=== PATIENT | male | born 1945 | race Caucasian/White ===

== ENCOUNTER 2017-05-07 04:46 | Inpatient (IN) | payer MEDICARE ==
[2017-05-07] VITALS (16 sets, daily range): BP systolic 124–184; BP diastolic 62–117
[~2017-05-07] VITALS: Ht 179.7 cm; Wt 156.2 kg
[~2017-05-07 04:46] MED LIST: AC500T PO; ALBU0.8322 IH; ALBU17AE3 IH; ALLP300T PO; AMLO5TAB2 PO; ASP81CT PO; ASP81TEC PO; ASPI-875 PO; BACL20TA PO; CARV6.252 PO; CLPD75T PO; DICL75TA2 PO; ENAL20TA PO; FLUT12AE4 IH; FURO40TA4 PO; GEMF600T3 PO; GLIM2TAB PO; INSASP10V IM; INSU100C4 SQ; INSU100I14 SQ; ISOS30TA3 PO; METF-380 PO; METO-272 PO; METO50TA7 PO; MOME13HF2 IH; MULT-963 PO; NTR.4SL SL; POTA20TA15 PO; POTA20TA7 PO; POTA99TA18 PO; RANI75TA30 PO; SIMV20TA3 PO; TICA90TA PO; UBID100C17 PO; [UNRECOGNIZED DRUG - CODE] IT; [UNRECOGNIZED DRUG - OTHER] PO; colon clenz PO
[2017-05-07] MEDS ORDERED: KETOROLAC 30 MG/ML VIAL IVP STA (04:59)
--- NOTE | 2017-05-07 05:08 | ED Fall/Injury ---
General Chief Complaint: Trauma-Non Activation Stated Complaint: BS FALL Nursing Triage Note: PT STATES FALL TONIGHT, SAYS HAS FALLEN X2 MORE TIME. EMS STATES PT FSBS LOW Source: patient, EMS Exam Limitations: no limitations (LIAT DAVIDSON) History of Present Illness Time seen by provider: 05:03 Initial Comments Patient presents to ER by EMS with a chief complaint of a fall approximately 1: 30 this morning. He was getting up to the bathroom and then fell called EMS EMS of the nail arrived to help him up from the bathroom. Patient states is not his head but rather landed on his left side. He's been having a lot of falls last couple days and yesterday fell on his left knee. He has not had this looked at either. He says it the past for 5 days been having some diarrhea and poor appetite but still taking his NovoLog 70/30 100 units twice a day. He's had no fevers chills cough shortness of breath or chest pain. He does have a history of coronary disease and the stent placed least 2 years ago. He is not on Plavix or blood thinners. He is however on aspirin. He's been on 2 different antibiotics one of which she thinks is ampicillin the last couple weeks for his left third toe and foot that he is being treated by wound care. (LIAT DAVIDSON) Allergies and Home Medications Allergies Coded Allergies: Gatifloxacin (Unverified Allergy, 07/02/12) Home Medications Acetaminophen 500 Mg Tablet, 1,500 MG PO HS, (Reported) TAKES 3 (500MG) TABLETS EVERY NIGHT AT BEDTIME Albuterol Sulfate 2.5 Mg/3 Ml Solution, 2.5 MG IH TID PRN, (Reported) NEEDED FOR SEVERE SHORTNESS OF BREATH Allopurinol 300 Mg Tablet, 300 MG PO BID, (Reported) Amlodipine Besylate 5 Mg Tablet, 5 MG PO HS, (Reported) Aspirin 81 Mg Chew, 81 MG PO DAILY, (Reported) Baclofen 20 Mg Tablet, 20 MG PO QID PRN, (Reported) NEEDED FOR PAIN Carvedilol 6.25 Mg Tablet, 6.25 MG PO BID, (Reported) Clopidogrel Bisulfate 75 Mg Tab, 75 MG PO HS, (Reported) Diclofenac Sodium 75 Mg Tablet.dr, 75 MG PO UD PRN, (Reported) take only as needed Enalapril Maleate 20 Mg Tablet, 20 MG PO DAILY, (Reported) Furosemide 40 Mg Tablet, 40 MG PO BID, (Reported) Glimepiride 2 Mg Tablet, 2 MG PO BID, (Reported) Insulin Aspart 100 Unit/1 Ml Insuln.pen, 30 UNIT SQ BID, (Reported) Insulin Glargine,Hum.rec.anlog 300 Units/3 Ml Soln, 40 UNITS SQ BID, (Reported) Isosorbide Mononitrate 60 Mg Tab, 60 MG PO BID, (Reported) Metformin Hcl 1,000 Mg Tablet, 1,000 MG PO BID WITH MEALS, (Reported) hold until 05/18/13 Metoprolol Succinate 50 Mg Tab.sr.24h, 50 MG PO HS, (Reported) Mometasone/Formoterol 13 Gm Hfa.aer.ad, 2 PUFF IH BID PRN, (Reported) NEEDED FOR SHORTNESS OF BREATH Multivitamin 1 Each Tablet, 1 TAB PO DAILY, (Reported) Nitroglycerin 0.4 Mg Tab, 0 SL PRN, (Reported) 1 TAB EVERY 5 MINUTES X 3 DOSES NEEDED FOR CHEST PAIN Potassium Chloride 20 Meq Tab.prt.sr, 20 MEQ PO DAILY, (Reported) Ranitidine Hcl 75 Mg Tablet, 150 MG PO HS, (Reported) Simvastatin 20 Mg Tablet, 20 MG PO DAILY, (Reported) [colon clenz] , 1 CAP PO HS, (Reported) Constitutional: No chills, No diaphoresis, dizziness, No fever, No malaise Eyes: Denies Blindness, Denies Blurred Vision, Denies Drainage, Denies Pain, Denies Photophobia Ears, Nose, Mouth, Throat: denies ear pain, denies ear discharge Respiratory: No cough, No short of breath, No wheezing Cardiovascular: No chest pain, Hx of Intervention, No palpitations, syncope, vascular heart diseas Gastrointestinal: No abdominal pain, No constipation, diarrhea, No nausea, No vomiting Genitourinary: No discharge, No dysuria, No frequency Musculoskeletal: see HPI, back pain, joint pain, No joint swelling Skin: No pruritus, No rash Psychiatric/Neurological: Denies Headache, Denies Numbness, Denies Paresthesia (LIAT DAVIDSON) Past Kzxeuts-Wbeieo-Ufamwu Hx Patient Social History Alcohol Use: Denies Use Recreational Drug Use: No Recent Foreign Travel: No Contact w/Someone Who Travel: No Recent Infectious Disease Expo: No (LIAT DAVIDSON) Immunizations Up To Date Date of Pneumonia Vaccine: May 14, 2011 (LIAT DAVIDSON) Physical Exam Vital Signs Vital Sign - Last 12Hours 05/07/17 07:55 O2 Flow Rate 4.00 (KEMAR COY MD) Vital Signs Capillary Refill : Less Than 3 Seconds (LIAT DAVIDSON) General Appearance: mild distress, obese HEENT: PERRL/EOMI, normal ENT inspection, TMs normal, pharynx normal Neck: non-tender, full range of motion, supple, normal inspection Cardiovascular: normal peripheral pulses, regular rate, rhythm, no murmur, other (compression dressings on bilateral legs) Respiratory: chest non-tender, lungs clear, normal breath sounds, no respiratory distress Gastrointestinal: normal bowel sounds, non tender, soft, no organomegaly Extremities: normal capillary refill, pedal edema, other (ankle and calf wraps) Neurologic/Psychiatric: alert, normal mood/affect, oriented x 3 Skin: normal color, warm/dry Lymphatic: no adenopathy (LIAT DAVIDSON) Tiffany Coma Score Best Eye Response: (4) Open Spontaneously Best Verbal Response: (5) Oriented Best Motor Response: (6) Obeys Commands Tiffany Total: 15 (LIAT DAVIDSON) Progress/Results/Core Measures Results/Orders Lab Results Laboratory Tests Test 05/07/17 05:00 05/07/17 05:15 05/07/17 05:30 05/07/17 06:28 Range/Units White Blood Count 11.0 4.3-11.0 10^3/uL Red Blood Count 4.43 4.35-5.85 10^6/uL Hemoglobin 13.8 13.3-17.7 G/DL Hematocrit 42 40-54 % Mean Corpuscular Volume 96 80-99 FL Mean Corpuscular Hemoglobin 31 25-34 PG Mean Corpuscular Hemoglobin Concent 33 32-36 G/DL Red Cell Distribution Width 15.3 H 10.0-14.5 % Platelet Count 210 130-400 10^3/uL Mean Platelet Volume 10.5 H 7.4-10.4 FL Neutrophils (%) (Auto) 73 42-75 % Lymphocytes (%) (Auto) 18 12-44 % Monocytes (%) (Auto) 8 0-12 % Eosinophils (%) (Auto) 2 0-10 % Basophils (%) (Auto) 1 0-10 % Neutrophils # (Auto) 8.0 H 1.8-7.8 X 10^3 Lymphocytes # (Auto) 2.0 1.0-4.0 X 10^3 Monocytes # (Auto) 0.8 0.0-1.0 X 10^3 Eosinophils # (Auto) 0.2 0.0-0.3 10^3/uL Basophils # (Auto) 0.1 0.0-0.1 10^3/uL Sodium Level 137 135-145 MMOL/L Potassium Level 4.9 3.6-5.0 MMOL/L Chloride Level 106 98-107 MMOL/L Carbon Dioxide Level 20 L 21-32 MMOL/L Anion Gap 11 5-14 MMOL/L Blood Urea Nitrogen 70 H 7-18 MG/DL Creatinine 2.83 H 0.60-1.30 MG/DL Estimat Glomerular Filtration Rate 22 BUN/Creatinine Ratio 25 Glucose Level 125 H 70-105 MG/DL Calcium Level 9.7 8.5-10.1 MG/DL Magnesium Level 2.2 1.8-2.4 MG/DL Total Bilirubin 0.5 0.1-1.0 MG/DL Aspartate Amino Transf (AST/SGOT) 23 5-34 U/L Alanine Aminotransferase (ALT/SGPT) 20 0-55 U/L Alkaline Phosphatase 86 40-136 U/L B-Type Natriuretic Peptide 10.2 <100.0 PG/ML Total Protein 7.6 6.4-8.2 GM/DL Albumin 3.9 3.2-4.5 GM/DL Serum Alcohol < 10 <10 MG/DL Urine Color YELLOW Urine Clarity CLEAR Urine pH 5 5-9 Urine Specific [place] 1.010 L 1.016-1.022 Urine Protein 2+ H NEGATIVE Urine Glucose (UA) NEGATIVE NEGATIVE Urine Ketones NEGATIVE NEGATIVE Urine Nitrite NEGATIVE NEGATIVE Urine Bilirubin NEGATIVE NEGATIVE Urine Urobilinogen NORMAL NORMAL MG/DL Urine Leukocyte Esterase NEGATIVE NEGATIVE Urine RBC (Auto) NEGATIVE NEGATIVE Urine RBC NONE /HPF Urine WBC NONE /HPF Urine Squamous Epithelial Cells 0-2 /HPF Urine Crystals NONE /LPF Urine Bacteria TRACE /HPF Urine Casts PRESENT /LPF Urine Hyaline Casts 10-25 H /LPF Urine Mucus NEGATIVE /LPF Urine Culture Indicated NO C-Reactive Protein High Sensitivity 2.18 H 0.00-0.50 MG/DL Glucometer 112 H 70-110 MG/DL Test 05/07/17 08:54 05/07/17 09:12 Range/Units Glucometer 101 70-110 MG/DL Blood Gas Puncture Site RT RADIAL Blood Gas Patient Temperature 96.6 Arterial Blood pH 7.20 *L 7.37-7.43 Arterial Blood Partial Pressure CO2 50 H 35-45 MMHG Arterial Blood Partial Pressure O2 59 L 79-93 MMHG Arterial Blood HCO3 19 L 23-27 MMOL/L Arterial Blood Total CO2 20.8 L 21.0-31.0 MMOL/L Arterial Blood Oxygen Saturation 88 L 94-100 % Arterial Blood Base Excess -7.8 L -2.5-2.5 MMOL/L [place] Test YES-POS Blood Gas Ventilator Setting NO Blood Gas Inspired Oxygen 2 (KEMAR COY MD) My Orders Orders - KEMAR COY MD Hs C Reactive Protein (05/07/17 06:34) Bipap Rt-Rfs (05/07/17 06:36) Ct Chest/Abdomen/Pelvis Wo (05/07/17 06:53) Ct Lumbar Spine Wo (05/07/17 06:53) Ns Iv 1000 Ml (Sodium Chloride 0.9%) (05/07/17 07:52) Cho 75g/M 0snack (21-2400 Jose) (05/07/17 Lunch) Naloxone Injection (Narcan Injection) (05/07/17 09:15) Arterial Blood Gas (05/07/17 09:13) Albuterol/Ipra Inhalation Soln (Duoneb I (05/07/17 10:00) Svn Sm Volume Nebulizer Rt-Rfs (05/07/17 09:53) (KEMAR COY MD) Medications Given in ED Current Medications Medications Dose Ordered Sig/Monika Route Start Time Stop Time Status Last Admin Dose Admin Albuterol/ Ipratropium 3 ml ONCE ONCE INH 05/07/17 10:00 05/07/17 10:01 DC 05/07/17 10:11 3 ML Naloxone HCl 0.4 mg ONCE ONCE IV 05/07/17 09:15 05/07/17 09:16 DC 05/07/17 09:16 0.4 MG Sodium Chloride 1,000 ml @ 0 mls/hr Q0M ONCE IV 05/07/17 05:59 05/07/17 06:00 DC 05/07/17 06:05 999 MLS/HR Sodium Chloride 1,000 ml @ 0 mls/hr Q0M ONCE IV 05/07/17 07:52 05/07/17 07:56 DC 05/07/17 08:04 1,000 MLS/HR (KEMAR COY MD) Vital Signs/I&O Vital Sign - Last 12Hours 05/07/17 05/07/17 05/07/17 05/07/17 04:49 04:49 05:10 07:55 Temp 98.9 98.9 98.9 Pulse 62 62 74 Resp 20 20 18 B/P (MAP) 119/79 119/79 (92) 137/94 Pulse Ox 92 92 96 O2 Delivery Room Air Room Air Nasal Cannula O2 Flow Rate 4.00 05/07/17 10:11 Pulse Ox 99 O2 Delivery OxyMask O2 Flow Rate 5.00 (KEMAR COY MD) Blood Pressure Mean: 92 Progress Note #1: Time: 06:38 Progress Note Care of this patient was assumed from Dr. Davidson at shift change. X-rays reviewed by me. There appeared to be age determinate compression fractures in the lumbar spine. CT of the head was viewed by me and [facility] report reviewed. There were no acute injuries identified. The remainder of the x-rays appear unremarkable in regard to trauma. Chest x-ray is obscured by body habitus. I have concerns about this patient's respiratory status. He has obvious obstructive sleep apnea. He is difficult to arouse, has on her breathing, and oxygen saturations dropped into the 80s when he falls into deep sleep even on 4 L by nasal cannula. I was eventually able to wake the patient to a conversational state. He reports he was told many years ago he needed CPAP but he does not want to use it. When informed he could in his sleep without CPAP he states "that would be all right". When asked about suicidal ideation, he denies any suicidal thinking. However, he states "there's no use in it" in regard to me asking if he wants to continue living. RT is now with patient to obtain an ABG. BiPAP will also be started. Although patient is now alert and conversational, he does fall asleep in mid sentence often. Repeat fingerstick blood sugar was 112. Patient was reexamined and found to have ecchymosis over the left posterior mid back. He complains of pain in this area. He denies pain in any other location. CT of the chest, abdomen and pelvis without contrast will be ordered to clarify his pulmonary status as the chest x-ray was obscured by body habitus. I believe patient should be admitted as he has had multiple falls in recent days. He has obvious severe sleep apnea. He is in acute renal failure. He also takes the maximum dose of baclofen which is problematic in the context of his sleep apnea. Progress Note #2: Time: 07:08 Progress Note Patient is much more alert at this time. Respiratory therapy has obtained an ABG and results are pending. Patient is refusing CPAP/BiPAP. He makes it very clear that he would rather or suffer consequences of end organ damage from hypoxemia then wear CPAP. He reports that he is 72 years old and prepared to if his sleep apnea is uncontrolled. He is very resolute on this matter and absolutely refuses respiratory support other than oxygen. He also states he wishes to be a DO NOT RESUSCITATE status. He expresses a desire for his to take him home and is not interested in admission. I will obtain a baseline creatinine to determine if he is truly an acute versus chronic renal failure which will impact decision to admit or dismiss. CT of the chest, abdomen and pelvis and L-spine are pending. Progress Note #3: Time: 08:04 Progress Note ABG was clotted. However, since patient refuses positive pressure respiratory support, I will not redraw the ABG. Patient remains more alert after CT scan. His labs from [facility] were reviewed. Baseline creatinine is 1.6-1.9. His second liter of IV fluids has been ordered. Progress Note #4: Time: 08:[address] scans were reviewed. There is no acute trauma. Plan was to allow patient to eat and do a trial of ambulation to determine disposition. However, patient is now unresponsive and will not wake up even with sternal rub. Fingerstick blood sugar was 101. Pupils are constricted. No narcotics on his med list but a trial of Narcan seems reasonable. An ABG will also be obtained now that there has been a change in mental status. Progress Note #5: Time: 10:01 Progress Note is now here with patient. She states patient's comments about rather dying than using CPAP are consistent with what he has said in the past. Patient states he will consider trying CPAP if admitted and that will expedite discharge home. Patient wanted to leave AMA but cannot care for him at home. Because of this he grudgingly accepts admission. states he seems a little confused. Oxygen saturations have been dropping to the low 80s on 4 L by nasal cannula when he is asleep. He has been very difficult to arouse. Narcan 0.4 mg was administered during his last episode and seemed to have no effect on his level of alertness. Patient is alert at this time. We will attempt to have him eat so as to avoid further hypoglycemia. Last fingerstick blood sugar was 101. Case has been reviewed with Dr. Gallagher who accepts admission. hotel services supervisor consult will be sought to evaluate for placement versus hospice. Dr. Hunter excepts consult for trauma evaluation. (KEMAR COY MD) Diagnostic Imaging Diagonstic Imaging: Xray Plain Films/CT/US/NM/MRI: chest (ribs) Comments No acute cardiopulmonary process noted. Poorly penetrated due to body habitus. Rib views reviewed without any acute osseous abnormalities noted. Reviewed: Reviewed by Me Plain Films/CT/US/NM/MRI: knee (left) Comments No acute osseous abnormalities. Degenerative changes of the knee noted. Reviewed: Reviewed by Me Diagonstic Imaging: Xray Plain Films/CT/US/NM/MRI: other (lumbar spine) Comments Wedging of L5. Chronic Degenerative Changes Noted. Loss of Normal Lumbar Curvature. No prior lumbar studies to compare to. Reviewed: Reviewed by Me Diagonstic Imaging: CT Plain Films/CT/US/NM/MRI: head Comments No intracranial bleed, mass, midline shift, mass effect, tumor. No acute intracranial abnormalities. No acute intracranial hemorrhage, transcortical infarctions or mass. No acute fractures. Paranasal sinus inflammatory disease with left maxillary sinus. Remainder of the paranasal sinuses are clear. The mastoid air cells are clear. There is incidentally bilateral proptosis. No intraorbital mass or fluid collection. Status post remote bilateral cataract surgery. Reviewed: Reviewed [place] Study, Reviewed by Me Diagonstic Imaging: Xray Plain Films/CT/US/NM/MRI: hip (left) Comments Degenerative changes noted but no acute osseous fracture. Reviewed: Reviewed by Me (LIAT DAVIDSON) Diagonstic Imaging: CT Plain Films/CT/US/NM/MRI: chest, abdomen, pelvis Comments CT chest, abdomen and pelvis viewed by me and report reviewed. See report below : NAME: [facility]LL[facility] REC#: [id number] PT STATUS: REG ER : 1945 PHYSICIAN: KEMAR COY MD ADMIT DATE: 05/07/17/ER Draft Date of Exam:05/07/17 CT CHEST/ABDOMEN/PELVIS WO Clinical indication: Patient with multiple recent falls. Patient complains of pain in hip, knees, ribs and low back. Exam: CT scan of the chest, abdomen, and pelvis performed without IV contrast. Coronal reformatted images were created. Comparison: CT scan of the lumbar spine without contrast dated 05/07/2017. Findings: Chest: There are cystic changes with parenchymal bands, bronchiectasis and scarring involving the anterior aspects of both lung apices and anterior aspects of both upper lobes. There is mild dependent atelectasis involving both lung bases. There is a nonspecific patchy area of consolidation in the medial right lung base which measures 1.8 cm seen on series 2, image 40. The remainder of the lungs show increased lung markings bilaterally which may be related to atelectasis or scarring. There is no pleural effusion or pneumothorax. There is no mediastinal hematoma. Visualized portion of the thyroid gland is unremarkable. There is no significant mediastinal, bilateral hilar, or axillary lymphadenopathy. The extrathoracic soft tissues are unremarkable. There is atherosclerotic disease of the coronary arteries. The thoracic spine, ribs, and shoulder regions show no acute fracture. There are degenerative spurs seen throughout the thoracic spine. Incompletely imaged surgical screws or pins within the proximal right humeral head. Abdomen and pelvis: There is no evidence of intra-abdominal free fluid or free air. The liver, spleen, pancreas, gallbladder and both adrenal glands are unremarkable. Both kidneys are unremarkable. Vascular calcifications are seen on the left. There is no hydronephrosis or gross renal mass seen. There is surgical anastomosis involving the sigmoid colon region. There is a small colonic diverticula involving the sigmoid colon with no CT evidence of diverticulitis. The appendix is unremarkable. Otherwise, the large bowel, small bowel, and stomach are unremarkable. There is no intra-abdominal lymphadenopathy or extra abdominal lymphadenopathy. The bladder is partially fluid distended with no gross abnormalities visualized. The prostate gland is grossly unremarkable. The extra abdominal and extrapelvic soft tissue structures show no acute process. Impression: 1: There is no CT evidence of acute chest, abdomen, or pelvic process. There is no bone fracture. 2: There is a 1.8 cm area of consolidation in the right lung base. Followup chest CT scan in 3 months is suggested to evaluate for resolution. 3: The remainder of the chest, abdomen and pelvis shows no significant abnormality. Dictated on workstation # [id number] Dict: 05/07/17 0806 Trans: 05/07/17 0845 [facility] [id number] Interpreted by: ANALI HUERTA MD Diagonstic Imaging: CT Plain Films/CT/US/NM/MRI: other (lumbar spine) Comments CT lumbar spine viewed by me and report reviewed. See report below: NAME: [facility]LL[facility] REC#: [id number] PT STATUS: REG ER : 1945 PHYSICIAN: KEMAR COY MD ADMIT DATE: 05/07/17/ER Draft Date of Exam:05/07/17 CT LUMBAR SPINE WO Clinical indication: Patient with multiple recent falls. Patient complains of pain in the hip, knee, rib and low back. Exam: Axial CT scan of the lumbar spine performed without IV contrast. Sagittal and coronal reformatted images were created. Comparison: X-ray of the lumbar spine dated 05/07/2017. Findings: Patient body habitus obscures fine detail of the bony structures of the lumbar spine. There is straightening of the upper lumbar spine posture. There is no acute lumbar spine fracture or dislocation. There is severely hypertrophic vertebral body spurs involving the thoracolumbar spine and multilevel facet arthropathy. There is severe loss of intervertebral disc height seen at the L1-L2, L2-L3, L3-L4, and moderate loss at the L4-L5 and L5-S1 levels. There is severe bilateral bony neural foramen narrowing at the L1-S1 levels due to facet arthropathy and disc spurs. There are suggestions of diffuse disc bulges seen from the T12-L5 levels with associated central posterior disc osteophyte complexes. There is severe central canal narrowing seen at the T12-L1, L2-L3, L3-L4, L4-5 levels and mild to moderate central canal narrowing at the L1-L2 level. There is suspected at least mild central canal narrowing at the L5-S1 level. There is no significant paraspinal soft tissue abnormality. There is mild dependent atelectasis involving the posterior lung bases. IMPRESSION: There is severe multilevel thoracolumbar spine degenerative disc disease with no acute lumbar spine fracture or dislocation. Dictated on workstation # [id number] Dict: 05/07/17 0800 Trans: 05/07/17 0836 [facility] [id number] Interpreted by: ANALI HUERTA MD (KEMAR COY MD) Transfer of Care Transfer of Care Time: 06:11 Care transferred to: Dr. Arcos (LIAT DAVIDSON) Departure Impression Impression: Primary Impression: Acute kidney injury (nontraumatic) Additional Impressions: Fall Qualified Codes: W19.XXXA - Unspecified fall, initial encounter Back pain Qualified Codes: M54.5 - Low back pain Left knee pain Qualified Codes: M25.562 - Pain in left knee Hypoglycemia Diarrhea Qualified Codes: A09 - Infectious gastroenteritis and colitis, unspecified Obstructive sleep apnea Hypoxia Disposition: ADMITTED INPATIENT Condition: Improved Admissions Decision to Admit Reason: Admit from ER (General) Decision to Admit/Date: May 07, 2017 Time/Decision to Admit Time: 06:30 (KEMAR COY MD) Departure-Patient Inst. Referrals: VINICIUS BERUMEN (PCP/Family) Primary Care Physician Copy Copies To 1: SAMANTHA CAMARGO MD, TITUS J May 07, 2017 05:08 KEMAR COY MD May 07, 2017 06:53
[2017-05-07 05:10] LABS: BASOPHILS # (AUTO) 0.1 10^3/uL (0.0-0.1); BASOPHILS % (AUTO) 1 % (0-10); EOSINOPHILS # (AUTO) 0.2 10^3/uL (0.0-0.3); EOSINOPHILS % (AUTO) 2 % (0-10); LYMPHOCYTES % (AUTO) 18 % (12-44); MEAN CORPUSCULAR HEMOGLOBIN 31 PG (25-34); MEAN CORPUSCULAR HGB CONC 33 G/DL (32-36); MEAN CORPUSCULAR VOLUME 96 FL (80-99); MEAN PLATELET VOLUME 10.5 FL (7.4-10.4); MONOCYTES # (AUTO) 0.8 X 10^3 (0.0-1.0); MONOCYTES % (AUTO) 8 % (0-12); NEUTROPHILS % (AUTO) 73 % (42-75); PLATELET COUNT 210 10^3/uL (130-400); RED BLOOD COUNT 4.43 10^6/uL (4.35-5.85); RED CELL DISTRIBUTION WIDTH 15.3 % (10.0-14.5)
[2017-05-07 05:22] LABS: BILIRUBIN,URINE NEGATIVE (NEGATIVE); KETONES,URINE NEGATIVE (NEGATIVE); LEUKOCYTE ESTERASE ,URINE NEGATIVE (NEGATIVE); NITRITE,URINE NEGATIVE (NEGATIVE); PH,URINE 5 (5-9); PROTEIN,URINE 2+ (NEGATIVE); UROBILINOGEN,URINE NORMAL (NORMAL)
[2017-05-07 05:31] LABS: SQUAMOUS EPITHELIAL CELL,UR 0-2 /HPF
[2017-05-07 05:37] LABS: ALANINE AMINOTRANSFERASE 20 U/L (0-55); ALBUMIN 3.9 GM/DL (3.2-4.5); ALCOHOL < 10 MG/DL (<10); ANION GAP 11 MMOL/L (5-14); ASPARTATE AMINO TRANSFERASE 23 U/L (5-34); BILIRUBIN,TOTAL 0.5 MG/DL (0.1-1.0); BLOOD UREA NITROGEN 70 MG/DL (7-18); BUN/CREATININE RATIO 25; CALCIUM 9.7 MG/DL (8.5-10.1); CARBON DIOXIDE 20 MMOL/L (21-32); CHLORIDE 106 MMOL/L (98-107); CREATININE SERUM 2.83 MG/DL (0.60-1.30); GFR ESTIMATED 22; GLUCOSE 125 MG/DL (70-105); MAGNESIUM 2.2 MG/DL (1.8-2.4); POTASSIUM 4.9 MMOL/L (3.6-5.0); SODIUM 137 MMOL/L (135-145); TOTAL PROTEIN 7.6 GM/DL (6.4-8.2)
[2017-05-07] MEDS ORDERED: ISM60TCR PO (05:44)
[2017-05-07] MEDS ORDERED: NS IV 1000 ML 1,000 ML IV ONE ×2 (05:59→07:52)
--- NOTE | 2017-05-07 06:42 | Diagnostic Imaging Report ---
Clinical indication: Patient with multiple recent falls. Patient complains of hip, knee, ribs and low back pain. Exam: X-ray of the left knee, 3 views. Comparison: None. Findings: There is no evidence of acute fracture or dislocation. There is no significant knee effusion. There is moderate to severe tricompartmental osteoarthritis of the left knee. There is moderate to severe medial compartment narrowing. There is a roughly 11 mm wide osteochondral defect involving the medial distal femoral condylar region. There is no loose bodies seen overlying the region of the joint. Impression: 1: There is no acute fracture or dislocation. 2: There is moderate to severe tricompartmental osteoarthritis of the left knee. 3: There is a small osteochondral defect involving the medial distal femoral condylar region. There is no loose body seen. Dictated by: Dictated on workstation # [id number]
--- NOTE | 2017-05-07 06:45 | Diagnostic Imaging Report ---
CLINICAL INDICATION: Patient with multiple recent falls. Patient complains of hip, knee, ribs, and low back pain. Exam: X-ray lumbar spine, 3 views. Comparison: None. FINDINGS: There is no evidence of acute fracture or dislocation. There is no cortical disruption seen. There is straightening of the thoracolumbar spine posterior region. There is severely hypertrophic vertebral body spurs seen throughout the lumbar spine. There is lower lumbar spine facet arthropathy/sclerosis. There is multilevel loss of intervertebral disc height which is severe at the L1-L2, L2-L3, L3-L4, moderate at the L4-5 and L5-S1 levels. Sacroiliac joints show no significant abnormality. There is mild left curvature of the the lumbar spine. IMPRESSION: 1.: There is levoscoliosis and severe multilevel lumbar spine degenerative disease with no acute fracture or dislocation. Dictated by: Dictated on workstation # [id number]
--- NOTE | 2017-05-07 06:54 | Diagnostic Imaging Report ---
Clinical indication: Evaluate head for acute process. Exam: Axial CT scan of the brain performed without IV contrast. Comparison: None. Findings: There is no evidence of acute cerebral infarct, intracranial hemorrhage, or gross mass effect. There is subtle focal areas of low-attenuation white matter changes in both cerebral hemispheres, likely representing chronic small vessel ischemic disease. There is normal marshall-white matter distinction. The brain parenchymal volume appears appropriate for patient's age. There is no significant midline shift or herniation. There is no evidence of hydrocephalus. The basal cisterns are unremarkable. The skull, extracranial soft tissue, and orbits are unremarkable. There is mild to moderate mucosal thickening involving the left maxillary sinus. There is mild mucosal thickening involving the ethmoid sinus and right maxillary sinus. There is mucosal thickening in the nasal cavity. Temporal bone structures show no significant abnormality. Impression: 1: Age-related brain parenchymal changes with no evidence of acute intracranial process. 2: Paranasal sinus disease. Dictated by: Dictated on workstation # [id number]
--- NOTE | 2017-05-07 08:02 | Diagnostic Imaging Report ---
Clinical indication: Patient with multiple recent falls. Patient complains of pain in hip, knee, ribs, and low back pain. Exam: X-ray of the left hip, AP and frog-leg views. Comparison: None. Findings: There is no acute fracture or dislocation. There is moderately hypertrophic spurs involving the left proximal femoral head/neck junction region. There is mild enthesopathy of the greater trochanter. Impression: Degenerative disease of the left hip with no acute fracture or dislocation seen. Dictated by: Dictated on workstation # [id number]
--- NOTE | 2017-05-07 08:14 | Diagnostic Imaging Report ---
CLINICAL INDICATION: Patient with multiple recent falls. Patient complains of pain in hip, knee, ribs, and low back. Exam: X-ray of the left ribs, 4 views. Comparison: Chest x-ray dated 05/07/2017. Findings: There is increased lung markings seen throughout both lungs which may be from chronic lung disease changes or lung infiltrates. These findings obscure evaluation of the left ribs. Left ribs show no acute fracture. There is severe multilevel thoracic and lumbar spine degenerative spurs. IMPRESSION: 1.: There is no evidence of rib fractures. 2: There is increased lung markings throughout both lungs which may represent lung infiltrates or chronic lung disease. Dictated by: Dictated on workstation # [id number]
--- NOTE | 2017-05-07 08:19 | Diagnostic Imaging Report ---
Clinical indication: Patient with recent falls. Patient complains of pain in hip, knee, ribs, and low back. Exam: Portable chest x-ray. Comparison: Chest x-ray dated 07/02/2012. Findings: There is interval development of increased lung markings with reticular nodular changes and patchy opacities throughout both lungs. Low lung volumes are seen. There is no pleural effusion or pneumothorax. Stable cardiomegaly. There is mild pulmonary vascular congestion. There are degenerative spurs seen throughout the thoracic spine. Impression: 1.: There is cardiomegaly and pulmonary vascular congestion which can be seen with congestive heart failure. 2: There is interval increased lung markings and reticulonodular changes throughout both lungs. These findings may be related to mild pulmonary congestion from congestive heart failure versus superimposed lung infiltrate or chronic lung disease changes. Dictated by: Dictated on workstation # [id number]
--- NOTE | 2017-05-07 08:37 | Diagnostic Imaging Report ---
Clinical indication: Patient with multiple recent falls. Patient complains of pain in the hip, knee, rib and low back. Exam: Axial CT scan of the lumbar spine performed without IV contrast. Sagittal and coronal reformatted images were created. Comparison: X-ray of the lumbar spine dated 05/07/2017. Findings: Patient body habitus obscures fine detail of the bony structures of the lumbar spine. There is straightening of the upper lumbar spine posture. There is no acute lumbar spine fracture or dislocation. There is severely hypertrophic vertebral body spurs involving the thoracolumbar spine and multilevel facet arthropathy. There is severe loss of intervertebral disc height seen at the L1-L2, L2-L3, L3-L4, and moderate loss at the L4-L5 and L5-S1 levels. There is severe bilateral bony neural foramen narrowing at the L1-S1 levels due to facet arthropathy and disc spurs. There are suggestions of diffuse disc bulges seen from the T12-L5 levels with associated central posterior disc osteophyte complexes. There is severe central canal narrowing seen at the T12-L1, L2-L3, L3-L4, L4-5 levels and mild to moderate central canal narrowing at the L1-L2 level. There is suspected at least mild central canal narrowing at the L5-S1 level. There is no significant paraspinal soft tissue abnormality. There is mild dependent atelectasis involving the posterior lung bases. IMPRESSION: There is severe multilevel thoracolumbar spine degenerative disc disease with no acute lumbar spine fracture or dislocation. Dictated by: Dictated on workstation # [id number]
--- NOTE | 2017-05-07 08:45 | Diagnostic Imaging Report ---
Clinical indication: Patient with multiple recent falls. Patient complains of pain in hip, knees, ribs and low back. Exam: CT scan of the chest, abdomen, and pelvis performed without IV contrast. Coronal reformatted images were created. Comparison: CT scan of the lumbar spine without contrast dated 05/07/2017. Findings: Chest: There are cystic changes with parenchymal bands, bronchiectasis and scarring involving the anterior aspects of both lung apices and anterior aspects of both upper lobes. There is mild dependent atelectasis involving both lung bases. There is a nonspecific patchy area of consolidation in the medial right lung base which measures 1.8 cm seen on series 2, image 40. The remainder of the lungs show increased lung markings bilaterally which may be related to atelectasis or scarring. There is no pleural effusion or pneumothorax. There is no mediastinal hematoma. Visualized portion of the thyroid gland is unremarkable. There is no significant mediastinal, bilateral hilar, or axillary lymphadenopathy. The extrathoracic soft tissues are unremarkable. There is atherosclerotic disease of the coronary arteries. The thoracic spine, ribs, and shoulder regions show no acute fracture. There are degenerative spurs seen throughout the thoracic spine. Incompletely imaged surgical screws or pins within the proximal right humeral head. Abdomen and pelvis: There is no evidence of intra-abdominal free fluid or free air. The liver, spleen, pancreas, gallbladder and both adrenal glands are unremarkable. Both kidneys are unremarkable. Vascular calcifications are seen on the left. There is no hydronephrosis or gross renal mass seen. There is surgical anastomosis involving the sigmoid colon region. There is a small colonic diverticula involving the sigmoid colon with no CT evidence of diverticulitis. The appendix is unremarkable. Otherwise, the large bowel, small bowel, and stomach are unremarkable. There is no intra-abdominal lymphadenopathy or extra abdominal lymphadenopathy. The bladder is partially fluid distended with no gross abnormalities visualized. The prostate gland is grossly unremarkable. The extra abdominal and extrapelvic soft tissue structures show no acute process. Impression: 1: There is no CT evidence of acute chest, abdomen, or pelvic process. There is no bone fracture. 2: There is a 1.8 cm area of consolidation in the right lung base. Followup chest CT scan in 3 months is suggested to evaluate for resolution. 3: The remainder of the chest, abdomen and pelvis shows no significant abnormality. Dictated by: Dictated on workstation # [id number]
[2017-05-07] MEDS ORDERED: NALOXONE 0.4 MG/ML 1 ML (NARCAN) VIAL IV ONE (09:15)
[2017-05-07 09:25] LABS: ABG BASE EXCESS -7.8 MMOL/L (-2.5-2.5); ABG HCO3 19 MMOL/L (23-27); ABG OXYGEN SATURATION 88 % (94-100); ABG PCO2 50 MMHG (35-45); ABG PO2 59 MMHG (79-93); ABG TCO2 20.8 MMOL/L (21.0-31.0)
[2017-05-07 09:27] LABS: ALLENS TEST YES-POS; PATIENT TEMP 96.6
[2017-05-07] MEDS ORDERED: RT-ALBUTEROL/IPRATROPIUM 3 ML (DUONEB) VIAL INH ONE (10:00)
[2017-05-07] MEDS ORDERED: RT-ALBUTEROL SULF 2.5 MG/3 ML PRE-MIX VIAL IH PRN (11:00)
[2017-05-07] MEDS ORDERED: ONDANSETRON 4 MG/2 ML (SDV) Z0FRAN IV PRN (11:00)
--- NOTE | 2017-05-07 11:21 | History & Physical-Hospitalist ---
HPI History of Present Illness: HPI/Chief Complaint CC: Respiratory failure HPI: This is a 72-year-old white male with a known history of obstructive sleep apnea and chronic renal insufficiency that presented to the emergency room with unresponsiveness. His called the paramedics due to unresponsiveness. He was found to have a pH is 7.2 and CO2 of 53 and O2 of 56 consistent with severe and chronic obstructive apnea. He was quite adamant about not using any sleep apnea treatment and he wanted more of the baclofen because he no longer wants to live and wants to go home and eat. It was assessed that he would benefit from ICU stay with close monitoring due to decompensation quickly. Baclofen will be held and all sedatives and he will be maintained on oxygen. He reports that he doesn't use his oxygen most of the time making this a very difficult situation since he does meet criteria for a trach placement but he refuses any type of treatment like that. I did hold most of his medications were nephrotoxic and will monitor patient closely in the meantime. He doesn't report suicidal ideation at this current time and patient is awake and alert but upon the least bit of positioning change he does have acute obstruction of the soft tissue of the neck and becomes unresponsive. Source: patient Exam Limitations: no limitations Date Seen 05/07/17 Time Seen by Provider: 11:30 Attending Physician Bharti Gallagher Kathryn H Arnp Referring Physician Date of Admission May 07, 2017 at 10:11 Home Medications & Allergies Home Medications Reviewed patient Home Medication Reconciliation Form Allergies Allergies Coded Allergies gatifloxacin (Unverified Allergy, Unknown, 05/07/17) Past Tcrpzgt-Uvdurf-Klhqht Hx Patient Social History Marrital Status: Employed/Student: retired Alcohol Use: Denies Use Recreational Drug Use: No Smoking Status: Former Smoker Recent Foreign Travel: No Contact w/other who traveled: No Recent Hopitalizations: No Recent Infectious Disease Expo: No Immunizations Up To Date Date of Pneumonia Vaccine: May 14, 2011 Seasonal Allergies Seasonal Allergies: No Respiratory Yes (Wears O2 3 L/M at [facility]) Sleep Apnea Cardiovascular Yes High Cholesterol, Hypertension Neurological Yes Neuropathy Genitourinary Yes Renal Failure Gastrointestinal Yes Chronic Constipation Musculoskeletal Yes Arthritis, Chronic Back Pain Endocrine History of Endocrine Disorders: Yes Endocrine Disorders: Diabetes, Non-Insulin dep Cancer Yes (SKIN) Psychosocial History of Psychiatric Problem: No Integumentary History of Skin or Integumenta: Yes (Left foot 3rd toe under tx antibiotics) Review of Systems Constitutional: see HPI, weakness EENTM: no symptoms reported Respiratory: short of breath Cardiovascular: no symptoms reported Gastrointestinal: no symptoms reported Genitourinary: no symptoms reported Musculoskeletal: back pain Skin: no symptoms reported Psychiatric/Neurological: Depressed All Other Systems Reviewed Negative Unless Noted: Yes Physical Exam Physical Exam Vital Signs Vital Sign - Last 12Hours 05/07/17 07:55 O2 Flow Rate 4.00 Capillary Refill : Less Than 3 Seconds General Appearance: No Apparent Distress, WD/WN, Chronically ill, Obese Eyes: Bilateral Eye Normal Inspection, Bilateral Eye PERRL HEENT: PERRL/EOMI, Normal ENT Inspection, Pharynx Normal, Other (increased neck circumference) Neck: Full Range of Motion, Normal Inspection, Non Tender, Supple, Carotid Bruit Respiratory: Chest Non Tender, Lungs Clear, Normal Breath Sounds, No Accessory Muscle Use, No Respiratory Distress Cardiovascular: Regular Rate, Rhythm, No Edema, No Gallop, No JVD, No Murmur, Normal Peripheral Pulses Gastrointestinal: Normal Bowel Sounds, No Organomegaly, No Pulsatile Mass, Non Tender, Soft Back: Normal Inspection, No CVA Tenderness, No Vertebral Tenderness Extremity: Normal Capillary Refill, Normal Inspection, Normal Range of Motion, Non Tender, No Calf Tenderness, No Pedal Edema Neurologic/Psychiatric: Alert, Oriented x3, No Motor/Sensory Deficits, Normal Mood/Affect Skin: Normal Color, Warm/Dry Lymphatic: No Adenopathy Results Results/Procedures Lab Laboratory Tests 05/07/17 05:00 Assessment/Plan Admission Diagnosis Assessment: Acute respiratory failure on chronic sleep apnea obstruction unwilling to use CPAP Morbid obesity with increased neck circumference needs trach placement but refuses Reports he wants to but no definite suicide ideation currently CO2 narcosis Acute on chronic renal failure Diuretic use Hypertension Hyperlipidemia Diabetes mellitus Neuropathy Chronic back pain Assessment and Plan Plan: Maintain oxygen Maintain position to prevent upper airway obstruction Monitor closely Hold diuretics that could cause worsening renal failure Hold baclofen and all other sedatives BHARTI GALLAGHER DO May 07, 2017 11:21
[2017-05-07] MEDS ORDERED: HUM100VI15 SQ (11:24)
[2017-05-07] MEDS ORDERED: SPIR25TA3 PO (11:24)
[2017-05-07] MEDS ORDERED: ACETAMINOPHEN 325 MG TABLET/CAPLET (TYLENOL) PO PRN (11:30)
[2017-05-07] MEDS ORDERED: NITROGLYCERIN SUBLINGUAL 0.4 MG TAB (NITROSTAT) SL PRN (12:45)
[2017-05-07] MEDS: RT-ALBUTEROL/IPRATROPIUM 3 ML (DUONEB) VIAL IH SCH ×3 (14:33→22:38)
--- NOTE | 2017-05-07 16:20 | Consultation ---
History of Present Illness History of Present Illness Patient Consulted On(eris/time) 05/07/17 16:14 Time Seen by Provider: 15:57 History of Present Illness Surgery consulted as Trauma; pt had multiple falls and needed to be cleared so he could be admitted as a medical only pt. HPI: Pt had at least 3 falls at home, adamant that he never struck his head or lost consciousness. He states he is "light headed" and they need to figure that out, but he needs to walk "cause if I don't use my legs I'll lose the use of them". He states he fell against the shower wall and struck the upper portion of his back; which is the only thing that hurts him now. HPI per Medicine: This is a 72-year-old white male with a known history of obstructive sleep apnea and chronic renal insufficiency that presented to the emergency room with unresponsiveness. His called the paramedics due to unresponsiveness. He was found to have a pH is 7.2 and CO2 of 53 and O2 of 56 consistent with severe and chronic obstructive apnea. He was quite adamant about not using any sleep apnea treatment and he wanted more of the baclofen because he no longer wants to live and wants to go home and eat. It was assessed that he would benefit from ICU stay with close monitoring due to decompensation quickly. Baclofen will be held and all sedatives and he will be maintained on oxygen. He reports that he doesn't use his oxygen most of the time making this a very difficult situation since he does meet criteria for a trach placement but he refuses any type of treatment like that. I did hold most of his medications were nephrotoxic and will monitor patient closely in the meantime. He doesn't report suicidal ideation at this current time and patient is awake and alert but upon the least bit of positioning change he does have acute obstruction of the soft tissue of the neck and becomes unresponsive. Allergies and Home Medications Allergies Coded Allergies: gatifloxacin (Unverified Allergy, Unknown, 05/07/17) Home Medications Acetaminophen 500 Mg Tablet, 1,500 MG PO HS, (Reported) TAKES 3 (500MG) TABLETS EVERY NIGHT AT BEDTIME Albuterol Sulfate 2.5 Mg/3 Ml Solution, 2.5 MG IH TID PRN, (Reported) NEEDED FOR SEVERE SHORTNESS OF BREATH Allopurinol 300 Mg Tablet, 300 MG PO BID, (Reported) Amlodipine Besylate 5 Mg Tablet, 5 MG PO HS, (Reported) Aspirin 81 Mg Chew, 81 MG PO DAILY, (Reported) Baclofen 20 Mg Tablet, 20 MG PO QID PRN, (Reported) NEEDED FOR PAIN Carvedilol 6.25 Mg Tablet, 25 MG PO BID, (Reported) Enalapril Maleate 20 Mg Tablet, 20 MG PO DAILY, (Reported) Furosemide 40 Mg Tablet, 40 MG PO BID, (Reported) Insulin NPH Hum/Reg Insulin Hm 100 Unit/1 Ml Vial, 100 UNIT SQ BID, (Reported) Isosorbide Mononitrate 60 Mg Tab, 60 MG PO BID, (Reported) Metformin Hcl 1,000 Mg Tablet, 1,000 MG PO BID WITH MEALS, (Reported) hold until 05/18/13 Multivitamin 1 Each Tablet, 1 TAB PO DAILY, (Reported) Nitroglycerin 0.4 Mg Tab, 0 SL PRN, (Reported) 1 TAB EVERY 5 MINUTES X 3 DOSES NEEDED FOR CHEST PAIN Potassium Chloride 20 Meq Tab.prt.sr, 20 MEQ PO DAILY, (Reported) Ranitidine Hcl 75 Mg Tablet, 150 MG PO HS, (Reported) Simvastatin 20 Mg Tablet, 20 MG PO DAILY, (Reported) Spironolactone 25 Mg Tablet, 25 MG PO DAILY, (Reported) [colon clenz] , 1 CAP PO HS, (Reported) Past Ivtxxlq-Yqwbrp-Rfkypv Hx Patient Social History Alcohol Use: Denies Use Recreational Drug Use: No Smoking Status: Former Smoker Recent Foreign Travel: No Contact w/Someone Who Travel: No Recent Infectious Disease Expo: No Recent Hopitalizations: No Physical Abuse Screen: No Sexual Abuse: No Immunizations Up To Date Date of Pneumonia Vaccine: May 14, 2011 Seasonal Allergies Seasonal Allergies: No Respiratory History of Respiratory Disorde: Yes (Wears O2 3L at [facility]) Respiratory Disorders: COPD Cardiovascular History of Cardiac Disorders: Yes Cardiac Disorders: High Cholesterol, Hypertension Neurological History of Neurological Disord: Yes Neurological Disorders: Neuropathy Genitourinary History of Genitourinary Disor: Yes Genitourinary Disorders: Renal Failure Gastrointestinal History of Gastrointestinal Di: Yes Gastrointestinal Disorders: Chronic Constipation Musculoskeletal History of Musculoskeletal Dis: Yes Musculoskeletal Disorders: Arthritis, Chronic Back Pain Endocrine History of Endocrine Disorders: Yes Endocrine Disorders: Diabetes, Non-Insulin dep HEENT History of HEENT Disorders: No Cancer History of Cancer: Yes (SKIN) Psychosocial History of Psychiatric Problem: No Integumentary History of Skin or Integumenta: Yes (Left foot 3rd toe under tx antibiotics) Family Medical History Significant Family History: CAD Over 55 Years Old (Brother had NM), Diabetes ( parents and siblings), Hypertension (parents and siblings), Stroke (brother) Review of Systems-General Constitutional: No chills, No diaphoresis, dizziness, weakness EENTM: No blurred vision, No epistaxis, No throat swelling Respiratory: No cough, No dyspnea on exertion Cardiovascular: No chest pain, edema, No palpitations Gastrointestinal: No abdominal pain, No constipation, No hematemesis Genitourinary: decreased output, No hematuria Musculoskeletal: back pain, joint pain, muscle stiffness, muscle weakness Skin: No change in color, No change in hair/nails Psychiatric/Neurological: Depressed, Emotional Problems, Numbness (neuropathy in feet), Denies Seizure, Weakness Physical Exam-General Problems Physical Exam Vital Signs Vital Sign - Last 12Hours 05/07/17 07:55 O2 Flow Rate 4.00 Capillary Refill : Less Than 3 Seconds General Appearance: no apparent distress, obese Eyes: Bilateral Eye PERRL, Bilateral Eye EOMI HEENT: pharynx normal, No scleral icterus (R), No scleral icterus (L) Neck: full range of motion, supple, normal inspection Respiratory: chest non-tender, lungs clear, normal breath sounds, no respiratory distress, no accessory muscle use Cardiovascular: regular rate, rhythm, no murmur Gastrointestinal: normal bowel sounds, soft, no organomegaly, no pulsatile mass Rectal: deferred Back: no CVA tenderness, no vertebral tenderness Extremities: no calf tenderness, normal capillary refill Neurologic/Psychiatric: riprap man II-XII nml as tested, no motor/sensory deficits, alert, normal mood/affect, oriented x 3 Lymphatic: no adenopathy (neck, axilla or groin) Data Review Labs Laboratory Tests 05/07/17 05:00: White Blood Count 11.0, Red Blood Count 4.43, Hemoglobin 13.8, Hematocrit 42, Mean Corpuscular Volume 96, Mean Corpuscular Hemoglobin 31, Mean Corpuscular Hemoglobin Concent 33, Red Cell Distribution Width 15.3H, Platelet Count 210, Mean Platelet Volume 10.5H, Neutrophils (%) (Auto) 73, Lymphocytes (%) (Auto) 18 , Monocytes (%) (Auto) 8, Eosinophils (%) (Auto) 2, Basophils (%) (Auto) 1, Neutrophils # (Auto) 8.0H, Lymphocytes # (Auto) 2.0, Monocytes # (Auto) 0.8, Eosinophils # (Auto) 0.2, Basophils # (Auto) 0.1, Sodium Level 137, Potassium Level 4.9, Chloride Level 106, Carbon Dioxide Level 20L, Anion Gap 11, Blood Urea Nitrogen 70H, Creatinine 2.83H, Estimat Glomerular Filtration Rate 22, BUN/ Creatinine Ratio 25, Glucose Level 125H, Calcium Level 9.7, Magnesium Level 2.2 , Total Bilirubin 0.5, Aspartate Amino Transf (AST/SGOT) 23, Alanine Aminotransferase (ALT/SGPT) 20, Alkaline Phosphatase 86, B-Type Natriuretic Peptide 10.2, Total Protein 7.6, Albumin 3.9, Serum Alcohol < 10 05/07/17 05:15: Urine Color YELLOW, Urine Clarity CLEAR, Urine pH 5, Urine Specific [place] 1.010L, Urine Protein 2+H, Urine Glucose (UA) NEGATIVE, Urine Ketones NEGATIVE, Urine Nitrite NEGATIVE, Urine Bilirubin NEGATIVE, Urine Urobilinogen NORMAL, Urine Leukocyte Esterase NEGATIVE, Urine RBC (Auto) NEGATIVE, Urine RBC NONE, Urine WBC NONE, Urine Squamous Epithelial Cells 0-2, Urine Crystals NONE, Urine Bacteria TRACE, Urine Casts PRESENT, Urine Hyaline Casts 10-25H, Urine Mucus NEGATIVE, Urine Culture Indicated NO 05/07/17 05:30: C-Reactive Protein High Sensitivity 2.18H 05/07/17 06:28: Glucometer 112H 05/07/17 08:54: Glucometer 101 05/07/17 09:12: Blood Gas Puncture Site RT RADIAL, Blood Gas Patient Temperature 96.6, Arterial Blood pH 7.20*L, Arterial Blood Partial Pressure CO2 50H, Arterial Blood Partial Pressure O2 59L, Arterial Blood HCO3 19L, Arterial Blood Total CO2 20.8L , Arterial Blood Oxygen Saturation 88L, Arterial Blood Base Excess -7.8L, [place] Test YES-POS, Blood Gas Ventilator Setting NO, Blood Gas Inspired Oxygen 2 05/07/17 14:21: Glucometer 156H Assessment/Plan Assessment/Plan Assessment/Plan Multiple fall/Trauma - no LOC, denies striking head Acute Renal Insufficiency with Chronic COPD Sleep Apnea DM Pt can be admitted to medicine, no Trauma follow-up needed. Thank you for this consult. I will sign off. I did try and talk to pt about his diziness and "need to walk". He will not "lose" his legs if he isn't walking; unless it is long-term. We can help with physical therapy, etc; but first need to make sure he isn't dizzy. Repeated falls are bad for him and he could start hitting his head which would be even worse. He sort of understood this, but still concerned about not walking enough. Clinical Quality Measures DVT/VTE Risk/Contraindication: Risk Factor Score Per Nursin RFS Level Per Nursing on Admit: 4+=Very High DALIA BA DO May 07, 2017 16:20
[2017-05-07] MEDS: inSUlin (REGULAR) HUMAN 1 UNIT/0.01 ML (CHARGE PER UNIT) SC SCH ×2 (16:47→20:57)
[2017-05-07] MEDS ORDERED: LIDOCAINE UROJET 2% GEL 10 ML PKG ONE (20:23)
[2017-05-07] MEDS: ISOSORBIDE MONONITRATE 60 MG (IMDUR) TAB PO SCH (20:58)
[2017-05-07] MEDS: ALLOPURINOL 300 MG (ZYLOPRIM) TAB PO SCH (20:58)
[2017-05-07] MEDS: FAMOTIDINE 20 MG (PEPCID) TABLET PO SCH (20:58)
[2017-05-07] MEDS: ACETAMINOPHEN 500 MG TAB (TYLENOL) PO SCH (20:58)
[2017-05-07] MEDS: FUROSEMIDE 40 MG (LASIX) TAB PO SCH (20:58)
[2017-05-08] VITALS (17 sets, daily range): BP systolic 137–200; BP diastolic 6–132
[2017-05-08] MEDS: RT-ALBUTEROL/IPRATROPIUM 3 ML (DUONEB) VIAL IH SCH ×6 (02:05→22:02)
[2017-05-08 03:55] LABS: BASOPHILS # (AUTO) 0.1 10^3/uL (0.0-0.1); BASOPHILS % (AUTO) 1 % (0-10); EOSINOPHILS # (AUTO) 0.4 10^3/uL (0.0-0.3); EOSINOPHILS % (AUTO) 4 % (0-10); LYMPHOCYTES # (AUTO) 2.4 X 10^3 (1.0-4.0); LYMPHOCYTES % (AUTO) 26 % (12-44); MEAN CORPUSCULAR HEMOGLOBIN 31 PG (25-34); MEAN CORPUSCULAR HGB CONC 33 G/DL (32-36); MEAN CORPUSCULAR VOLUME 95 FL (80-99); MEAN PLATELET VOLUME 10.5 FL (7.4-10.4); MONOCYTES % (AUTO) 11 % (0-12); NEUTROPHILS # (AUTO) 5.2 X 10^3 (1.8-7.8); NEUTROPHILS % (AUTO) 58 % (42-75); PLATELET COUNT 195 10^3/uL (130-400); RED BLOOD COUNT 4.31 10^6/uL (4.35-5.85); RED CELL DISTRIBUTION WIDTH 15.1 % (10.0-14.5)
[2017-05-08 04:25] LABS: CALCIUM 9.5 MG/DL (8.5-10.1); CREATININE SERUM 2.1 MG/DL (0.60-1.30); MAGNESIUM 1.8 MG/DL (1.8-2.4); PHOSPHORUS 4.1 MG/DL (2.3-4.7); POTASSIUM 4.6 MMOL/L (3.6-5.0)
[2017-05-08] MEDS ORDERED: KCL 20 MEQ TAB (K-DUR) PO SCH (06:00)
[2017-05-08] MEDS ORDERED: MAGNESIUM 1 GM/100 ML IVPB 100 ML IV SCH (06:00)
[2017-05-08] MEDS ORDERED: POTASSIUM CL 10MEQ/50ML IVPB 50 ML IV SCH (06:00)
[2017-05-08] MEDS: inSUlin (REGULAR) HUMAN 1 UNIT/0.01 ML (CHARGE PER UNIT) SC SCH ×4 (06:18→20:10)
--- NOTE | 2017-05-08 07:04 | Pulmonary Consultation ---
History of Present Illness History of Present Illness Date of Consultation 05/08/17 06:59 Time Seen by Provider: 07:04 Date of Admission History of Present Illness 72 yo with hx of morbid obesity, IDDM, chronic renal insufficiency, and VARINDER. Pt became unresponsive at home and called EMS. upon ED admission he was found to have acute respiratory failure with respiratory acidosis on ABG. PT refused to use BiPAP. He does have a CPAP machine at home however he also refuses to use it. He also uses oxygen at home however he also doesn't use that as RX. Pt is doing better since admission he is only requiring 2-3 liters of oxygen. I am consulted for pulmonary management. Allergies and Home Medications Allergies Coded Allergies: gatifloxacin (Unverified Allergy, Unknown, 05/07/17) Home Medications Acetaminophen 500 Mg Tablet, 1,500 MG PO HS, (Reported) TAKES 3 (500MG) TABLETS EVERY NIGHT AT BEDTIME Albuterol Sulfate 2.5 Mg/3 Ml Solution, 2.5 MG IH TID PRN, (Reported) NEEDED FOR SEVERE SHORTNESS OF BREATH Allopurinol 300 Mg Tablet, 300 MG PO BID, (Reported) Amlodipine Besylate 5 Mg Tablet, 5 MG PO HS, (Reported) Aspirin 81 Mg Chew, 81 MG PO DAILY, (Reported) Baclofen 20 Mg Tablet, 20 MG PO QID PRN, (Reported) NEEDED FOR PAIN Carvedilol 6.25 Mg Tablet, 25 MG PO BID, (Reported) Enalapril Maleate 20 Mg Tablet, 20 MG PO DAILY, (Reported) Furosemide 40 Mg Tablet, 40 MG PO BID, (Reported) Insulin NPH Hum/Reg Insulin Hm 100 Unit/1 Ml Vial, 100 UNIT SQ BID, (Reported) Isosorbide Mononitrate 60 Mg Tab, 60 MG PO BID, (Reported) Metformin Hcl 1,000 Mg Tablet, 1,000 MG PO BID WITH MEALS, (Reported) hold until 05/18/13 Multivitamin 1 Each Tablet, 1 TAB PO DAILY, (Reported) Nitroglycerin 0.4 Mg Tab, 0 SL PRN, (Reported) 1 TAB EVERY 5 MINUTES X 3 DOSES NEEDED FOR CHEST PAIN Potassium Chloride 20 Meq Tab.prt.sr, 20 MEQ PO DAILY, (Reported) Ranitidine Hcl 75 Mg Tablet, 150 MG PO HS, (Reported) Simvastatin 20 Mg Tablet, 20 MG PO DAILY, (Reported) Spironolactone 25 Mg Tablet, 25 MG PO DAILY, (Reported) [colon clenz] , 1 CAP PO HS, (Reported) Past Oykjnna-Lflcbe-Putunv Hx Patient Social History Alcohol Use: Denies Use Recreational Drug Use: No Smoking Status: Former Smoker Recent Foreign Travel: No Contact w/Someone Who Travel: No Recent Infectious Disease Expo: No Recent Hopitalizations: No Immunizations Up To Date Date of Pneumonia Vaccine: May 14, 2011 Seasonal Allergies Seasonal Allergies: No Respiratory History of Respiratory Disorde: Yes (Wears O2 3L at [facility]) Respiratory Disorders: COPD Currently Using CPAP: No Currently Using BIPAP: No Cardiovascular History of Cardiac Disorders: Yes Cardiac Disorders: High Cholesterol, Hypertension Neurological History of Neurological Disord: Yes Neurological Disorders: Neuropathy Genitourinary History of Genitourinary Disor: Yes Genitourinary Disorders: Renal Failure Gastrointestinal History of Gastrointestinal Di: Yes Gastrointestinal Disorders: Chronic Constipation Musculoskeletal History of Musculoskeletal Dis: Yes Musculoskeletal Disorders: Arthritis, Chronic Back Pain Endocrine History of Endocrine Disorders: Yes Endocrine Disorders: Diabetes, Non-Insulin dep HEENT History of HEENT Disorders: No Cancer History of Cancer: Yes (SKIN) Psychosocial History of Psychiatric Problem: No Integumentary History of Skin or Integumenta: Yes (Left foot 3rd toe under tx antibiotics) Family Medical History Significant Family History: CAD Over 55 Years Old (Brother had HI), Diabetes ( parents and siblings), Hypertension (parents and siblings), Stroke (brother) Review of Systems Time Seen by Provider: 07:10 Constitutional: Sweats, Weakness, Malaise, No: Fever, Chills, Other Eyes: No: Pain, Vision change, Conjunctivae inflammation, Eyelid inflammation, Other, Redness ENT: No: Ear pain, Ear discharge, Nose pain, Nose discharge, Nose congestion, Mouth pain, Mouth swelling, Throat pain, Throat swelling, Other Respiratory: Cough, Dry, Shortness of breath, SOB with excertion, No: Wheezing , Sputum Cardiovascular: Orthopnea, Paroxysmal Noc. Dyspnea, Edema, Lt Headedness, No: Chest Pain, Palpitations, Other Gastrointestinal: Diarrhea, No: Nausea, Vomiting, Abdominal Pain, Constipation , Melena, Hematochezia, Other Genitourinary: No Dysuria, No Frequency, No Incontinence, No Hematuria, No Retention, No Other Musculoskeletal: back pain Neurological: Weakness, Incoordination, Change in speech, Confusion, No: Numbness, Seizures Exam Exam Vital Signs Date Time Temp Pulse Resp B/P (MAP) Pulse Ox O2 Delivery O2 Flow Rate FiO2 05/08/17 06:46 99 Nasal Cannula 2.00 05/08/17 06:00 92 13 172/113 100 Nasal Cannula 4.00 05/08/17 05:00 92 18 165/96 99 Nasal Cannula 4.00 05/08/17 04:12 97.0 Nasal Cannula 4.00 05/08/17 04:00 Nasal Cannula 4.00 05/08/17 04:00 85 16 148/84 99 Nasal Cannula 4.00 05/08/17 03:00 86 14 156/86 99 Nasal Cannula 4.00 05/08/17 02:08 88 14 95 40.00 05/08/17 02:00 84 12 177/109 95 NIV Bilevel 25.00 05/08/17 01:08 96 NIV Bilevel 25.00 05/08/17 01:00 19 05/08/17 01:00 87 14 153/6 94 Nasal Cannula 3.00 05/08/17 00:55 88 16 95 25.00 05/08/17 00:00 Nasal Cannula 3.00 05/08/17 00:00 99.9 05/08/17 00:00 92 15 137/78 98 Nasal Cannula 3.00 05/07/17 23:00 89 18 128/73 97 Nasal Cannula 3.00 05/07/17 22:38 100 Nasal Cannula 2.00 05/07/17 22:00 88 13 147/80 97 Nasal Cannula 3.00 05/07/17 21:00 95 10 124/92 98 Nasal Cannula 3.00 05/07/17 20:00 Nasal Cannula 3.00 05/07/17 20:00 90 16 166/98 95 Nasal Cannula 3.00 05/07/17 19:30 99.8 93 18 136/117 98 Nasal Cannula 3.00 05/07/17 19:00 93 9 155/100 98 Nasal Cannula 3.00 05/07/17 19:00 90 05/07/17 18:41 100 Nasal Cannula 2.00 05/07/17 18:00 91 16 135/67 99 Nasal Cannula 3.00 05/07/17 17:00 92 19 128/77 95 Nasal Cannula 3.00 05/07/17 16:14 Nasal Cannula 3.00 05/07/17 16:00 85 28 140/62 95 Nasal Cannula 3.00 05/07/17 16:00 97.5 Nasal Cannula 3.00 05/07/17 15:00 84 30 96 Nasal Cannula 3.00 05/07/17 14:34 98 Nasal Cannula 2.00 05/07/17 14:00 82 20 137/93 97 Nasal Cannula 3.00 05/07/17 13:00 80 16 144/83 98 Nasal Cannula 3.00 05/07/17 13:00 81 05/07/17 12:08 20 98 05/07/17 12:00 80 11 130/116 97 Nasal Cannula 3.00 05/07/17 12:00 Nasal Cannula 3.00 05/07/17 11:00 80 14 181/99 99 Nasal Cannula 3.00 05/07/17 10:30 Nasal Cannula 3.00 05/07/17 10:30 96.6 82 22 184/89 98 Nasal Cannula 3.00 05/07/17 10:15 75 18 98 OxyMask 5.00 05/07/17 10:11 99 OxyMask 5.00 05/07/17 07:55 74 18 137/94 96 Nasal Cannula 4.00 General Appearance: No Apparent Distress, WD/WN, Chronically ill, Obese HEENT: PERRL/EOMI, Normal ENT Inspection, Pharynx Normal, Other (increased neck circumference) Neck: Full Range of Motion, Normal Inspection, Non Tender, Supple, Carotid Bruit Respiratory: Chest Non Tender, Lungs Clear, Normal Breath Sounds, No Accessory Muscle Use, No Respiratory Distress Cardiovascular: Regular Rate, Rhythm, No Edema, No Gallop, No JVD, No Murmur, Normal Peripheral Pulses Capillary Refill: Less Than 3 Seconds Gastrointestinal: normal bowel sounds, soft, no organomegaly, no pulsatile mass Extremity: Normal Capillary Refill, Normal Inspection, Normal Range of Motion, Non Tender, No Calf Tenderness, No Pedal Edema Neurologic/Psychiatric: Alert, Oriented x3, No Motor/Sensory Deficits, Normal Mood/Affect Skin: Normal Color, Warm/Dry Lymphatic: No Adenopathy Results Lab Laboratory Tests 05/07/17 05:00 05/08/17 03:45 Assessment/Plan Assessment/Plan Acute on chronic respiratory failure -Pt does use 3 liters of oxygen at home -Improving however still requiring oxygen Morbid obesity with obesity hypoventilation syndrome VARINDER -Pt refuses to use CPAP therapy IDDM debility and Chronic back pain -Pain control -? ECF placement Pt is doing better will transfer to 4th floor. 254 Clinical Quality Measures DVT/VTE Risk/Contraindication: Risk Factor Score Per Nursin RFS Level Per Nursing on Admit: 4+=Very High DUC CASTANON DO May 08, 2017 07:04
[2017-05-08] MEDS: FUROSEMIDE 40 MG (LASIX) TAB PO SCH ×2 (08:18→20:03)
[2017-05-08] MEDS: ASPIRIN 81 MG CHEW (CHILDREN'S ASA) PO SCH (08:18)
[2017-05-08] MEDS: SIMvastatin 20 MG (ZOCOR) TAB PO SCH (08:18)
[2017-05-08] MEDS: ALLOPURINOL 300 MG (ZYLOPRIM) TAB PO SCH ×2 (08:18→20:03)
[2017-05-08] MEDS: ISOSORBIDE MONONITRATE 60 MG (IMDUR) TAB PO SCH ×2 (08:18→20:03)
--- NOTE | 2017-05-08 08:45 | Progress Note-Hospitalist ---
Subjective HPI/CC On Admission Date Seen by Provider: May 08, 2017 Time Seen by Provider: 07:00 CC: Respiratory failure HPI: This is a 72-year-old white male with a known history of obstructive sleep apnea and chronic renal insufficiency that presented to the emergency room with unresponsiveness. His called the paramedics due to unresponsiveness. He was found to have a pH is 7.2 and CO2 of 53 and O2 of 56 consistent with severe and chronic obstructive apnea. He was quite adamant about not using any sleep apnea treatment and he wanted more of the baclofen because he no longer wants to live and wants to go home and eat. It was assessed that he would benefit from ICU stay with close monitoring due to decompensation quickly. Baclofen will be held and all sedatives and he will be maintained on oxygen. He reports that he doesn't use his oxygen most of the time making this a very difficult situation since he does meet criteria for a trach placement but he refuses any type of treatment like that. I did hold most of his medications were nephrotoxic and will monitor patient closely in the meantime. He doesn't report suicidal ideation at this current time and patient is awake and alert but upon the least bit of positioning change he does have acute obstruction of the soft tissue of the neck and becomes unresponsive. Subjective/Events-last exam Pt reports feeling better today. he was unable to use his CPAP last night because the alarm kept going off. He also does not believe he needs it and is unsure if he will wear it at home but he does have a CPA at home. He states his breathing is better than on arrival. His only concern today is about removal of his catheter as he is concerned about being able to urinate without it. He denies any other complaints this AM. Objective Exam Vital Signs Vital Sign - Last 12Hours 05/07/17 07:55 O2 Flow Rate 4.00 Capillary Refill : Less Than 3 Seconds General Appearance: No Apparent Distress, Obese Respiratory: Chest Non Tender, No Accessory Muscle Use, No Respiratory Distress , Decreased Breath Sounds (bases inaudible due to body habitus) Cardiovascular: Regular Rate, Rhythm, No Murmur, Normal Peripheral Pulses Gastrointestinal: Normal Bowel Sounds, Non Tender, Soft Neurologic/Psychiatric: Alert, Oriented x3 Results/Procedures Lab Laboratory Tests 05/08/17 03:45 Assessment/Plan Assessment and Plan Assess & Plan/Chief Complaint Obesity Hypoventilation Syndrome with VARINDER Attempt CPA again tonight Near home O2 requirement Keep HOB elevated to avoid upper airway obstruction Continue to hold sedatives as able Transfer out of ICU HTN Blood pressure elevated today On Imdur and Lasix Will resume Coreg today Acute on Chronic Renal Failure Reports baseline renal insufficiency [employer] Operator improved today, no baseline available Insulin Dependent Diabetes Mellitus II Continue on home insulin Holding metformin, will likely need to completely stop at DC due to kidney function Dispo: Transfer to 4th floor today will likely DC home tomorrow. Will need Home Health. EMMANUEL LORENZO MD May 08, 2017 08:45
[2017-05-08] MEDS: CARVEDILOL 12.5 MG (COREG) TABLET PO SCH ×2 (09:37→20:03)
--- NOTE | 2017-05-08 10:21 | Diagnostic Imaging Report ---
Indication: Recent fall. Comparison made with prior examination from 05/07/17. Findings: This cardiomegaly. Moderate central pulmonary venous congestion. There is no pleural effusion or pneumothorax. The mediastinum is unremarkable. IMPRESSION: Cardiomegaly and moderate central pulmonary venous congestion. There are also some bibasilar atelectasis and/or pneumonitis. Dictated by: Dictated on workstation # [id number]
[2017-05-08] MEDS: ENOXAPARIN 30 MG/0.3 ML (LOVENOX) SYR SC SCH (16:33)
[2017-05-08] MEDS ORDERED: BACLOFEN 10 MG (LIORESAL) TAB ONE (17:33)
[2017-05-08] MEDS: ACETAMINOPHEN 500 MG TAB (TYLENOL) PO SCH (20:03)
[2017-05-08] MEDS: FAMOTIDINE 20 MG (PEPCID) TABLET PO SCH (20:03)
[2017-05-08] MEDS ORDERED: BACLOFEN 10 MG (LIORESAL) TAB PO PRN (21:00)
[2017-05-09] VITALS: BP 192/100
[2017-05-09 01:15] VITALS: BP 184/100
[2017-05-09] MEDS: RT-ALBUTEROL/IPRATROPIUM 3 ML (DUONEB) VIAL IH SCH ×3 (02:38→10:56)
[2017-05-09] MEDS: ENOXAPARIN 30 MG/0.3 ML (LOVENOX) SYR SC SCH (03:03)
[2017-05-09 03:05] VITALS: BP 199/95
[2017-05-09 06:00] VITALS: BP 193/100
[2017-05-09 06:40] LABS: BASOPHILS # (AUTO) 0.1 10^3/uL (0.0-0.1); BASOPHILS % (AUTO) 1 % (0-10); EOSINOPHILS # (AUTO) 0.5 10^3/uL (0.0-0.3); EOSINOPHILS % (AUTO) 5 % (0-10); LYMPHOCYTES # (AUTO) 2.8 X 10^3 (1.0-4.0); LYMPHOCYTES % (AUTO) 30 % (12-44); MEAN CORPUSCULAR HEMOGLOBIN 31 PG (25-34); MEAN CORPUSCULAR HGB CONC 33 G/DL (32-36); MEAN CORPUSCULAR VOLUME 95 FL (80-99); MEAN PLATELET VOLUME 10.6 FL (7.4-10.4); MONOCYTES % (AUTO) 11 % (0-12); NEUTROPHILS # (AUTO) 4.9 X 10^3 (1.8-7.8); NEUTROPHILS % (AUTO) 53 % (42-75); PLATELET COUNT 214 10^3/uL (130-400); RED CELL DISTRIBUTION WIDTH 15.4 % (10.0-14.5); WHITE BLOOD COUNT 9.2 10^3/uL (4.3-11.0)
[2017-05-09] MEDS: inSUlin (REGULAR) HUMAN 1 UNIT/0.01 ML (CHARGE PER UNIT) SC SCH ×2 (06:48→11:39)
[2017-05-09 07:01] LABS: CREATININE SERUM 2.12 MG/DL (0.60-1.30); MAGNESIUM 1.6 MG/DL (1.8-2.4); PHOSPHORUS 3.7 MG/DL (2.3-4.7); POTASSIUM 4.5 MMOL/L (3.6-5.0)
[2017-05-09 08:00] VITALS: BP 194/96
[2017-05-09] MEDS: ASPIRIN 81 MG CHEW (CHILDREN'S ASA) PO SCH (08:14)
[2017-05-09] MEDS: FUROSEMIDE 40 MG (LASIX) TAB PO SCH (08:14)
[2017-05-09] MEDS: ALLOPURINOL 300 MG (ZYLOPRIM) TAB PO SCH (08:14)
[2017-05-09] MEDS: SIMvastatin 20 MG (ZOCOR) TAB PO SCH (08:14)
[2017-05-09] MEDS: ISOSORBIDE MONONITRATE 60 MG (IMDUR) TAB PO SCH (08:14)
[2017-05-09] MEDS: CARVEDILOL 12.5 MG (COREG) TABLET PO SCH (08:14)
--- NOTE | 2017-05-09 08:30 | Pulmonary Progress Note ---
Subjective Time Seen by Provider: 08:29 Subjective/Events-last exam No complications noted currently. Exam Exam Vital Signs Date Time Temp Pulse Resp B/P (MAP) Pulse Ox O2 Delivery O2 Flow Rate FiO2 05/09/17 06:17 93 Nasal Cannula 3.00 05/09/17 06:00 98.4 92 22 193/100 96 Nasal Cannula 3.00 05/09/17 03:05 85 199/95 05/09/17 02:39 97 Nasal Cannula 3.00 05/09/17 01:15 184/100 05/09/17 00:00 98.2 85 22 192/100 96 Nasal Cannula 3.00 05/08/17 22:02 98 Nasal Cannula 3.00 05/08/17 20:37 165/94 05/08/17 20:00 Nasal Cannula 3.00 05/08/17 19:50 97.5 86 20 200/120 97 Nasal Cannula 3.00 05/08/17 18:32 96 Nasal Cannula 3.00 05/08/17 16:00 Nasal Cannula 3.00 05/08/17 16:00 98.2 84 19 174/100 96 Nasal Cannula 3.00 05/08/17 14:20 93 Nasal Cannula 2.00 05/08/17 12:00 Nasal Cannula 3.00 05/08/17 12:00 98.3 89 20 168/95 95 Nasal Cannula 3.00 05/08/17 10:30 94 Nasal Cannula 2.00 05/08/17 09:45 97.5 99 18 182/92 96 Nasal Cannula 3.00 05/08/17 09:00 93 24 143/91 99 Nasal Cannula 3.00 General Appearance: No Apparent Distress, Obese HEENT: PERRL/EOMI, Normal ENT Inspection, Pharynx Normal, Other (increased neck circumference) Neck: Full Range of Motion, Normal Inspection, Non Tender, Supple, Carotid Bruit Respiratory: Chest Non Tender, No Accessory Muscle Use, No Respiratory Distress , Decreased Breath Sounds (bases inaudible due to body habitus) Cardiovascular: Regular Rate, Rhythm, No Murmur, Normal Peripheral Pulses Capillary Refill: Less Than 3 Seconds Gastrointestinal: normal bowel sounds, soft, no organomegaly, no pulsatile mass Extremity: Normal Capillary Refill, Normal Inspection, Normal Range of Motion, Non Tender, No Calf Tenderness, No Pedal Edema Neurologic/Psychiatric: Alert, Oriented x3 Skin: Normal Color, Warm/Dry Lymphatic: No Adenopathy Results Lab Laboratory Tests 05/08/17 03:45 05/09/17 06:29 Assessment/Plan Assessment/Plan Acute on chronic respiratory failure -Pt does use 3 liters of oxygen at home -Improving however still requiring oxygen Morbid obesity with obesity hypoventilation syndrome Atelectasis -- doubt pneumonia -increase activity -IS VARINDER -Pt refuses to use CPAP therapy IDDM debility and Chronic back pain -Pain control -? ECF placement 232 Clinical Quality Measures DVT/VTE Risk/Contraindication: Risk Factor Score Per Nursin RFS Level Per Nursing on Admit: 4+=Very High DUC CASTANON DO May 09, 2017 08:30
[2017-05-09] MEDS ORDERED: GLIM2TAB PO (09:25)
[2017-05-09] MEDS ORDERED: BACL20TA PO (09:25)
[2017-05-09] MEDS ORDERED: CARV25TA PO (09:25)
[2017-05-09] MEDS ORDERED: CARB15DR2 OU (09:25)
[2017-05-09] MEDS ORDERED: LOSA100T28 PO (09:25)
[2017-05-09] MEDS ORDERED: COLON CLENZ PO (09:25)
[2017-05-09] MEDS ORDERED: SILV400C23 TOP (09:25)
[2017-05-09] MEDS ORDERED: RANI150T11 PO (09:25)
[2017-05-09] MEDS ORDERED: ASPI-983 PO (09:25)
[2017-05-09] MEDS ORDERED: FLUT1AER IH (09:25)
[2017-05-09] MEDS ORDERED: SUPER COLON CLEANSE PO (09:25)
[2017-05-09] MEDS ORDERED: IPRA3AMP IH (09:25)
[2017-05-09] MEDS ORDERED: DIPH25CA79 PO (09:25)
[2017-05-09 09:28] VITALS: BP 170/96
[2017-05-09] MEDS ORDERED: amLODIPine 5 MG (NORVASC) TAB PO SCH (11:00)
[2017-05-09] MEDS ORDERED: AMLO5TAB2 PO (11:02)
[2017-05-09] MEDS ORDERED: BACL10TA PO (11:02)
[2017-05-09] MEDS ORDERED: ASPI-999 PO (11:02)
--- NOTE | 2017-05-09 11:10 | Discharge Summary-Hospitalist ---
Diagnosis/Chief Complaint Date of Admission May 07, 2017 at 10:11 Date of Discharge 05/09/17 Discharge Date: May 09, 2017 Admission Diagnosis Assessment: Acute respiratory failure on chronic sleep apnea obstruction unwilling to use CPAP Morbid obesity with increased neck circumference needs trach placement but refuses Reports he wants to but no definite suicide ideation currently CO2 narcosis Acute on chronic renal failure Diuretic use Hypertension Hyperlipidemia Diabetes mellitus Neuropathy Chronic back pain Discharge Diagnosis Obesity Hypoventilation Syndrome with VARINDER -Did not use CPAP again last night -At or below home O2 requirement -Keep HOB elevated to avoid upper airway obstruction -Continue to hold sedatives as able HTN -Blood pressure elevated today -On Imdur and Lasix, Coreg - Will add amlodipine Acute on Chronic Renal Failure -Reports baseline renal insufficiency -Hydramatic Specialist stable, DC'd ARB given CRF Insulin Dependent Diabetes Mellitus II -Continue on home insulin -DC'd metformin given renal function will need to follow up with PCP Dispo: DC home today. Discharge Summary Consultations Surgery: Dr. Hunter Pulmonology: Dr. Ace Discharge Physical Examination Allergies: Coded Allergies: gatifloxacin (Unverified Allergy, Unknown, 05/07/17) Vitals & I&Os Vital Signs Date Time Temp Pulse Resp B/P (MAP) Pulse Ox O2 Delivery O2 Flow Rate FiO2 05/09/17 09:28 89 170/96 05/09/17 08:00 98.0 18 97 Nasal Cannula 3.00 Hospital Course Pt is a 72yo CM who presented after a fall at home. He was found unresponsive in the bathroom and upon arrival here was found to have a mixed acidosis. He has a long history of VARINDER/Obesity Hypoventilation syndrome and has declined use of a CPAP and trach placement despite recurrent upper airway obstruction. Pulmonology was consulted and his respiratory status was stabilized. He was made aware of the benefits of CPAP but continues to decline use here but reports he will try it at home. His blood pressure elevated and given his poor renal function I discontinued his ARB. He was started on Amlodipine. If renal function improves he may be a candidate for resumption but will defer to PCP who will follow him. Labs (last 24 hrs) Laboratory Tests 05/08/17 11:24: Glucometer 206H 05/08/17 16:25: Glucometer 217H 05/08/17 20:00: Glucometer 166H 05/09/17 06:27: Glucometer 181H 05/09/17 06:29: White Blood Count 9.2, Red Blood Count 4.50, Hemoglobin 13.9, Hematocrit 43, Mean Corpuscular Volume 95, Mean Corpuscular Hemoglobin 31, Mean Corpuscular Hemoglobin Concent 33, Red Cell Distribution Width 15.4H, Platelet Count 214, Mean Platelet Volume 10.6H, Neutrophils (%) (Auto) 53, Lymphocytes (%) (Auto) 30 , Monocytes (%) (Auto) 11, Eosinophils (%) (Auto) 5, Basophils (%) (Auto) 1, Neutrophils # (Auto) 4.9, Lymphocytes # (Auto) 2.8, Monocytes # (Auto) 1.0, Eosinophils # (Auto) 0.5H, Basophils # (Auto) 0.1, Sodium Level 138, Potassium Level 4.5, Chloride Level 106, Carbon Dioxide Level 17L, Anion Gap 15H, Blood Urea Nitrogen 40H, Creatinine 2.12H, Estimat Glomerular Filtration Rate 31, BUN/ Creatinine Ratio 19, Glucose Level 192H, Calcium Level 10.0, Phosphorus Level 3.7, Magnesium Level 1.6L Pending Labs Laboratory Tests 05/09/17 06:27: Glucometer 181 05/09/17 06:29: White Blood Count 9.2, Red Blood Count 4.50, Hemoglobin 13.9, Hematocrit 43, Mean Corpuscular Volume 95, Mean Corpuscular Hemoglobin 31, Mean Corpuscular Hemoglobin Concent 33, Red Cell Distribution Width 15.4, Platelet Count 214, Mean Platelet Volume 10.6, Neutrophils (%) (Auto) 53, Lymphocytes (%) (Auto) 30 , Monocytes (%) (Auto) 11, Eosinophils (%) (Auto) 5, Basophils (%) (Auto) 1, Neutrophils # (Auto) 4.9, Lymphocytes # (Auto) 2.8, Monocytes # (Auto) 1.0, Eosinophils # (Auto) 0.5, Basophils # (Auto) 0.1, Sodium Level 138, Potassium Level 4.5, Chloride Level 106, Carbon Dioxide Level 17, Anion Gap 15, Blood Urea Nitrogen 40, Creatinine 2.12, Estimat Glomerular Filtration Rate 31, BUN/ Creatinine Ratio 19, Glucose Level 192, Calcium Level 10.0, Phosphorus Level 3.7 , Magnesium Level 1.6 Discussion & Recommendations I encouraged him to use his CPAP as prescribed to help with his symptoms. I also recommended follow up with his PCP and Dr. Ace in 1-2 weeks. If symptoms should return or worsen he should return to the ER for evaluation. Discharge Home Medications: Active Scripts Active Amlodipine Besylate 5 Mg Tablet 5 Mg PO DAILY Aspirin 81 Mg Tab.chew 81 Mg PO DAILY 30 Days Baclofen 10 Mg Tablet 20 Mg PO TID PRN Reported Breo Ellipta 100-25 Mcg INH (Fluticasone/Vilanterol) 1 Each Blst.w.dev 1 Puff IH DAILY PRN Iprat-Albut 0.5-3(2.5) mg/3 ml (Ipratropium/Albuterol Sulfate) 3 Ml Ampul.neb 3 Ml IH Q6H PRN Benadryl (Diphenhydramine HCl) 25 Mg Capsule 50 Mg PO DAILY PRN TAKES 2 (25MG) CAPSULES Refresh Optive Eye Drops (Carboxymethylcellulos/Glycerin) 15 Ml Drops 1-2 Drops OU QID PRN [Super Colon Cleanse] 1 Cap PO HS PRN [Colon Clenz] 1 Cap PO HS Carvedilol 25 Mg Tablet 25 Mg PO BID Glimepiride 2 Mg Tablet 2 Mg PO BID Ranitidine HCl 150 Mg Tablet 150 Mg PO HS Baclofen 20 Mg Tablet 40 Mg PO HS TAKES 2 (20MG) TABLETS EVERY NIGHT AT BEDTIME Silver Sulfadiazine 400 Gm Cream..g. TOP HS APPLY TO LEG WOUND Losartan Potassium 100 Mg Tablet 100 Mg PO HS Aspirin EC (Aspirin) 81 Mg Tablet.dr 162 Mg PO HS TAKES 2 (81MG) TABLETS Spironolactone 25 Mg Tablet 25 Mg PO HS Novolin 70-30 100 Unit/ml Vial (Insulin NPH Hum/Reg Insulin Hm) 100 Unit/1 Ml Vial 100 Unit SQ BID Isosorbide Mononitrate ER (Isosorbide Mononitrate) 60 Mg Tab 60 Mg PO BID Simvastatin 20 Mg Tablet 20 Mg PO HS Tylenol (Acetaminophen) 500 Mg Tablet 1,500 Mg PO HS TAKES 3 (500MG) TABLETS EVERY NIGHT AT BEDTIME Nitrostat (Nitroglycerin) 0.4 Mg Tab 0.4 Mg SL UD PRN 1 TAB EVERY 5 MINUTES X 3 DOSES NEEDED FOR CHEST PAIN Baclofen 20 Mg Tablet 20 Mg PO BID PRN Furosemide 40 Mg Tablet 120 Mg PO DAILY TAKES 3 (40MG) TABLETS Metformin 1000 Mg (Metformin HCl) 1,000 Mg Tablet 1,000 Mg PO BID WITH MEALS Zyloprim (Allopurinol) 300 Mg Tablet 300 Mg PO BID Multi-Vitamin Daily (Multivitamin) 1 Each Tablet 1 Tab PO DAILY Condition at discharge Improved, stable Instructions to patient/family Please see electonic discharge instructions given to patient. Clinical Quality Measures DVT/VTE Risk/Contraindication: Risk Factor Score Per Nursin RFS Level Per Nursing on Admit: 4+=Very High Copy Copies To 1: SAMANTHA CAMARGO MD, KATELYN M MD May 09, 2017 11:10
[2017-05-10] MEDS ORDERED: SIMvastatin 20 MG (ZOCOR) TAB PO SCH (21:00)
== END 2017-05-09 12:04 | disposition home or self-care (01) | DRG 189 ==
LOC: EDUNIT# 04:46 → ER 04:48 → ICU 10:11 → 4TH 05-08 10:58
PROVIDERS: ADMIT Internal Medicine; ATTEND Internal Medicine
DX: J96.20 Acute and chronic respiratory failure, unspecified whether with hypoxia or hypercapnia (principal); G47.33 Obstructive sleep apnea (adult) (pediatric); E66.2 Morbid (severe) obesity with alveolar hypoventilation; Z68.42 Body mass index [BMI] 45.0-49.9, adult; R06.89 Other abnormalities of breathing; N17.9 Acute kidney failure, unspecified; J98.11 Atelectasis; I12.9 Hypertensive chronic kidney disease with stage 1 through stage 4 chronic kidney disease, or unspecified chronic kidney disease; Z66 Do not resuscitate; N18.9 Chronic kidney disease, unspecified; E78.5 Hyperlipidemia, unspecified; E11.649 Type 2 diabetes mellitus with hypoglycemia without coma; G62.9 Polyneuropathy, unspecified; R29.6 Repeated falls; M54.9 Dorsalgia, unspecified; I25.10 Atherosclerotic heart disease of native coronary artery without angina pectoris; M17.12 Unilateral primary osteoarthritis, left knee; R19.7 Diarrhea, unspecified; Z95.5 Presence of coronary angioplasty implant and graft; Z79.84 Long term (current) use of oral hypoglycemic drugs
CPT/HCPCS: 36415; 70450; 71010; 71100; 71250; 72100; 72131; 73502; 73562; 74176; 80048; 80053; 80320; 81000; 82805; 82962; 83735; 83880; 84100; 85025; 86141; 94640; 94660; 94664; 94760; 96361; 96374; 96375; 99285